=== PATIENT | male | born 1955 | race Caucasian/White ===

== ENCOUNTER 2016-12-20 01:19 | Day surgery (SDC) | payer OTHER ==
[~2016-12-20] VITALS: Ht 172.7 cm; Wt 77.1 kg
[~2016-12-20 01:19] MED LIST: CYCL7.5T27 PO; IBUP800T28 PO; LISI10TA PO; OXYC1TAB24 PO; SILD100T PO; SIMV20TA4 PO; TAMS0.4C98 PO
[2016-12-20] MEDS ORDERED: Sodium Biphos-Phos 133 mL Enema RECTAL PRN (06:00)
[2016-12-20] MEDS ORDERED: fentaNYL-PF 50 mCg/mL 2 mL Inj IVPUSH PRN (06:00)
[2016-12-20] MEDS ORDERED: Sodium Chloride LOK Flush 10 mL Syringe IV PRN (06:00)
[2016-12-20 14:35] VITALS: BP 135/92; PULSE 83; RESP 16; O2SAT 99
[2016-12-20] MEDS: 0.9% Sodium Chloride 1,000 ML IV SCH ×2 (14:43→16:55)
[2016-12-20 17:13] VITALS: BP 117/83; PULSE 89; RESP 16; O2SAT 98
[2016-12-20 17:20] VITALS: BP 128/87; PULSE 87; RESP 16; O2SAT 97
--- NOTE | 2016-12-21 01:09 | ENDO ---
[address] [address] ENDOSCOPY PROCEDURE PATIENT: MINDI WADE : 1955 MR#: [id number] ADMIT: 12/20/2016 JOB ID: [id number] DATE OF SERVICE: 12/20/2016 PREPROCEDURE DIAGNOSIS: Personal history of colon polyps. POSTPROCEDURE DIAGNOSIS: Personal history of colon polyps, sigmoid diverticulosis, focal sigmoid colitis, and difficulty with sedation. PROCEDURE: Colonoscopy with biopsies. ENDOSCOPIST: Germain Reynoso MD MEDICATIONS: Versed 7 mg, fentanyl 150 mcg. INDICATIONS: The patient is a 61-year-old man, who last underwent colonoscopy in [address] Hogan. That procedure found tubular adenomas with hyperplastic features in the sigmoid colon. Five year followup was recommended. Of note, he takes chronic narcotics for back pain as well as Flexeril. He is recommended to have his procedure with anesthesia, but he declined. After discussion of risks and benefits, he agreed to proceed with colonoscopy with biopsies. FINDINGS: He was very combative despite being under the sedation that he had. So, if was felt that it was not safe to complete the final portion of the intubation of the cecum, although the area of cecal valve was visualized from afar. There were some sigmoid diverticula. There was also focal colitis in the sigmoid colon which was biopsied. Retroflexion was not performed. No other mucosal abnormalities were identified. PROCEDURE: Procedural sedation was achieved with difficulty. He was connected to hemodynamic monitoring, pulse oximetry, capnography. After digital rectal exam, the PCF-H180AL colonoscope was introduced and passed under visualization to the level of the mid ascending colon. As described above, the ileocecal valve was visualized from afar, but he was very combative, swinging wildly at the end of the procedure, so it was felt that it was not safe to proceed any further at that time. The quality of the prep was good. The scope was then withdrawn carefully. No mucosal abnormalities were identified other than that in the sigmoid colon. There was a focal area of mild colitis with sort of a petechial appearance of the mucosa. This was biopsied with cold forceps and sent for permanent pathology. Retroflexion was not performed. There were some moderate sigmoid diverticula, but no other abnormalities. The scope was withdrawn and the procedure terminated. RECOMMENDATIONS: For screening, his next colonoscopy should be in five years and should be done with anesthesia. He will be mailed a letter with biopsy results. HAYLEE
--- NOTE | 2016-12-25 12:32 | PATH ---
SURGICAL PATHOLOGY Attending Physician:Nolberto Morales CASE STATUS: Signed Out PATIENT NAME: MINDI WADE PID: [id number] : 1955 DATE COLLECTED:12/20/2016 00:00 SPECIMEN: Colon, Biopsy CLINICAL HISTORY: 1). SIGMOID COLON BIOPSY FINAL DIAGNOSIS: 1.SIGMOID COLON BIOPSY: FOCAL AREAS OF ACUTE COLITIS, INCLUDING CRYPTITIS. (SEE COMMENT) Negative for significant architectural distortion. Negative for dysplasia and malignancy. ICD10 K52.9 NOTE: The changes present here are nonspecific, but would be consistent with those associated with diverticular disease or possibly infection. Clinical correlation is suggested. GROSS DESCRIPTION: The specimen is received in one formalin filled container labeled with the patient's name, sublabeled "sigmoid colon" and consists of 2 portions of tissue which aggregate to 0.3 x 0.2 x 0.2 CM. The specimen is entirely submitted in one cassette. 12/21/2016 [facility] MICRO DESCRIPTION: See diagnosis. ICD-9 CODES: CPT CODES: 1: 89729 Electronically Signed Out Hollis Rhodes MD [facility] Pathology [facility] [address], [place] [address] Technical component performed at [facility], [address] [place] [address] [address], [place], [address]
== END 2016-12-20 23:59 | disposition home or self-care (01) ==
LOC: END 01:19
PROVIDERS: ATTEND Student in an Organized Health Care Education/Training Program
DX: Z12.11 Encounter for screening for malignant neoplasm of colon (principal); Z86.010 Personal history of colon polyps; K52.89 Other specified noninfective gastroenteritis and colitis; K57.30 Diverticulosis of large intestine without perforation or abscess without bleeding; M54.89 Other dorsalgia; Z79.891 Long term (current) use of opiate analgesic
CPT/HCPCS: 45380; 99153; G0500; J7030